=== PATIENT | male | born 1995 | race Two or more races ===

== ENCOUNTER 2019-05-27 21:05 | Emergency (ER) | payer MEDICAID, OTHER ==
[~2019-05-27] VITALS: Ht 182.9 cm; Wt 108.9 kg
[2019-05-27 23:05] VITALS: BP 123/76
[2019-05-28] MEDS ORDERED: KETOROLAC TROMETHAMINE INJ 60 MG/2 ML VIAL IM ONE ×2 (00:19→00:30)
[2019-05-28] MEDS ORDERED: CLINDAMYCIN 900 MG/6 ML VIAL ONE (00:19)
[2019-05-28] MEDS ORDERED: CLINDAMYCIN 900 MG/6 ML VIAL IM ONE (00:30)
== END 2019-05-28 00:58 | disposition home or self-care (01) ==
LOC: ER 21:09
DX: L03.116 Cellulitis of left lower limb (principal)
CPT/HCPCS: 96372 ×2; 99283; J1885; J3490

== ENCOUNTER → 2019-05-29 | Emergency (ER) | payer MEDICAID ==
[~2019-05-29] VITALS: Ht 182.9 cm; Wt 109.3 kg
[2019-05-29 15:00] VITALS: BP 126/74
== END | disposition home or self-care (01) ==
LOC: ER 15:02
DX: L03.116 Cellulitis of left lower limb (principal)

== ENCOUNTER 2019-11-23 22:58 | Emergency (ER) | payer SELFPAY ==
[~2019-11-23] VITALS: Ht 182.9 cm; Wt 104.3 kg
--- NOTE | 2019-11-23 23:05 | NUR ---
PT PRESENTED TO THE ER WITH A C/O FLU LIKE SYMPTOMS. PT IS C/O BODY ACHES, FEVER, CHILLS, COUGH W/SORE THROAT, CONGESTION. 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
[2019-11-23] MEDS ORDERED: ONDANSETRON 4 MG TAB.RAPDIS ONE (23:23)
[2019-11-23] MEDS ORDERED: IBUPROFEN 400 MG TABLET ONE (23:23)
[2019-11-23] MEDS ORDERED: IBUPROFEN 400 MG TABLET PO ONE (23:30)
[2019-11-23] MEDS ORDERED: ONDANSETRON 4 MG TAB.RAPDIS SL ONE (23:30)
[2019-11-23] MEDS ORDERED: GUAIFENESIN 300 MG/15 ML UDC ONE (23:58)
[2019-11-24] MEDS ORDERED: GUAIFENESIN 300 MG/15 ML UDC PO ONE
--- NOTE | 2019-11-24 00:25 | NUR ---
PT REC'D COUGH SYRUP AND TOLERATED PO WELL. PT IS C/O SORE MAGGYT.
[2019-11-24 00:53] VITALS: BP 115/67
== END 2019-11-24 00:29 | disposition home or self-care (01) ==
LOC: ER 23:03
DX: J06.9 Acute upper respiratory infection, unspecified (principal)
CPT/HCPCS: 87804 ×2; 99284; Q0162

== ENCOUNTER 2021-08-28 22:43 | Emergency (ER) | payer SELFPAY ==
[~2021-08-28] VITALS: Ht 182.9 cm; Wt 99.8 kg
[2021-08-28 22:50] VITALS: BP 148/88
--- NOTE | 2021-08-28 23:18 | NUR ---
pt refused iv insertion and blood draw for lab. informed.
--- NOTE | 2021-08-28 23:29 | NUR ---
PT REFUSED CXR, WANTS TO LEAVE. MD EDWARDS INFORMED. PAPERWORK AMA FORM SIGNED.
[2021-08-28] MEDS ORDERED: KETOROLAC TROMETHAMINE INJ 30 MG/ML VIAL IV ONE (23:30)
--- NOTE | 2021-08-28 23:42 | NUR ---
PT ELOPED FROM ER.
== END 2021-08-28 23:43 | disposition left against medical advice (07) ==
LOC: ER 22:47
DX: R07.89 Other chest pain (principal); F17.200 Nicotine dependence, unspecified, uncomplicated

== ENCOUNTER 2025-03-12 13:46 | Emergency (ER) | payer SELFPAY ==
[~2025-03-12] VITALS: Ht 182.9 cm; Wt 99.8 kg
[2025-03-12 15:12] LABS: BASOPHILS % (AUTO) 0.3 % (0.0-2.0); EOSINOPHILS # (AUTO) 0.1 K/uL (0.0-0.7); EOSINOPHILS % (AUTO) 1.8 % (0.0-6.0); HEMATOCRIT 44 % (39-51); LYMPHOCYTES # (AUTO) 1.3 K/uL (0.8-4.8); LYMPHOCYTES % (AUTO) 22.2 % (20.0-44.0); MEAN CORPUSCULAR HEMOGLOBIN 30 PG (26.0-33.0); MEAN CORPUSCULAR HGB CONC 34 g/dl (31.0-36.0); MEAN CORPUSCULAR VOLUME 88 fL (80-96); MONOCYTES # (AUTO) 0.6 K/uL (0.1-1.30); MONOCYTES % (AUTO) 9.8 % (2.0-12.0); NEUTROPHILS % (AUTO) 65.9 % (43.0-81.0); PLATELET COUNT (AUTO) 183 K/uL (150-450); RED BLOOD CELL COUNT(AUTO) 5.03 MIL/uL (4.5-6.0); RED CELL DISTRIBUTION WIDTH 13.4 % (11.5-15.0); WHITE BLOOD COUNT (AUTO) 6.1 K/uL (4.3-11.0)
[2025-03-12] MEDS ORDERED: FAMOTIDINE/PF INJ 20 MG/2 ML VIAL IV ONE (15:20)
[2025-03-12] MEDS ORDERED: KETOROLAC TROMETHAMINE 15 MG/ML VIAL ONE (15:20)
[2025-03-12] MEDS ORDERED: MAG HYDROX/AL HYDROX/SIMETH 30 ML UDC ONE (15:20)
[2025-03-12] MEDS: MAG HYDROX/AL HYDROX/SIMETH 30 ML UDC PO ONE (15:30)
[2025-03-12] MEDS: IV LR 1000 ML 1,000 ML BAG IV ONE (15:30)
[2025-03-12] MEDS: Thiamine 100 MG in IV D5W 50 ML IV ONE (15:30)
[2025-03-12] MEDS: FAMOTIDINE/PF INJ 20 MG/2 ML VIAL IV ONE (15:30)
[2025-03-12] MEDS: KETOROLAC TROMETHAMINE 15 MG/ML VIAL IV ONE (15:30)
[2025-03-12 15:40] LABS: CALCIUM, SERUM 9.4 mg/dL (8.5-10.1)
[2025-03-12 15:52] LABS: ALBUMIN 3.7 g/dL (3.4-5.0); BILIRUBIN,DIRECT 0.1 mg/dL (0.0-0.2); BILIRUBIN,TOTAL 0.6 mg/dL (0.2-1.0); TOTAL PROTEIN, SERUM 6.7 g/dL (6.4-8.2)
[2025-03-12 18:06] VITALS: BP 127/69; TEMP 98.3; O2SAT 100
== END 2025-03-12 18:07 | disposition home or self-care (01) ==
LOC: ER 13:59
DX: R10.12 Left upper quadrant pain (principal); R53.1 Weakness; R53.83 Other fatigue; H53.8 Other visual disturbances; F17.200 Nicotine dependence, unspecified, uncomplicated
CPT/HCPCS: 36415; 80048-TC; 80076-TC; 83690-TC; 84443-TC; 85025-TC; J1308; J1885; J3411; J7060; J7120